=== PATIENT | female | born 1970 | race Two or more races ===

== ENCOUNTER → 2024-09-18 | Outpatient (CLI) | payer BC, SELFPAY ==
--- NOTE | 2024-09-18 11:30 | XR_ITS ---
Examination: Breast ultrasound, unilateral, left complete Date and time of exam: September 18, 2024 1113 hours INDICATIONS: Left breast pain beginning 5 months ago, family history, sister, breast cancer Technique: Real-time zuniga scale ultrasonographic imaging performed left breast including all 4 quadrants as well as nipple retroareolar and axillary region. Findings: 3:00 nodule circumscribed 7 x 4 mm 3.2, 3.3 cm axillary lymph nodes IMPRESSION: BI-RADS Category 3: Probably benign findings One additional 6 month left breast sonogram follow-up is needed to document stability of 3:00 nodule described above
== END | disposition home or self-care (01) ==
PROVIDERS: PCP Nurse Practitioner Family; Referring Provider Nurse Practitioner Family; Visit Provider Nurse Practitioner Family
DX: N63.25 Unspecified lump in the left breast, overlapping quadrants (principal)
CPT/HCPCS: 76641